=== PATIENT | male | born 1940 | race Caucasian/White ===

== ENCOUNTER 2017-04-26 15:02 | Emergency (ER) | payer OTHER ==
[~2017-04-26] VITALS: Ht 180.3 cm; Wt 80.0 kg
[2017-04-26] MEDS ORDERED: SODIUM CHLORIDE 0.9% 500 ML IV ONE (15:21)
[2017-04-26] MEDS ORDERED: MORPHINE SULFATE 4 MG/ML CPJ (NOT FOR IM USE) IV STA (15:22)
[2017-04-26] MEDS ORDERED: ONDANSETRON HCL 4MG/2ML VIAL IV STA (15:22)
[2017-04-26 16:01] LABS: BASOPHILS % 0.5 % (0.0-2.0); HEMATOCRIT. 42.4 % (42.0-52.0); HEMOGLOBIN. 14.6 g/dL (14.0-18.0); LYMPHOCYTES % 19.6 % (20.0-50.0); MEAN CORPUSCULAR HEMOGLOBIN 31.3 pg (28.0-32.0); MEAN CORPUSCULAR VOLUME 91.3 fL (80.0-94.0); MEAN PLATELET VOLUME 8.7 fl (7.4-10.4); MONOCYTES % 7.5 % (2.0-8.0); NEUTROPHILS % 71.4 % (40.0-76.0); PLATELET 211 x1000/uL (130-400); RED BLOOD CELL COUNT 4.64 mill/uL (4.7-6.1); RED CELL DISTRIBUTION WIDTH 15.1 % (11.6-14.6)
[2017-04-26 16:12] LABS: CARBON DIOXIDE 24 mEq/L (21-32); CHLORIDE 107 mEq/L (98-107); CREATINE KINASE MB FRACTION 2.5 ng/mL (0.5-3.6); TROPONIN I < 0.02 ng/mL (0.00-0.04)
[2017-04-26 16:16] LABS: PROTHROMBIN TIME 10.4 sec
[2017-04-26] MEDS ORDERED: ASPIRIN 81MG TABLET PO ONE (17:30)
[2017-04-26] MEDS ORDERED: MORPHINE SULFATE 4 MG/ML CPJ (NOT FOR IM USE) IV ONE (17:30)
[2017-04-26 20:07] VITALS: BP 181/79
== END 2017-04-26 20:28 | disposition short-term general hospital (02) ==
LOC: ER 15:14
DX: R55 Syncope and collapse (principal); I10 Essential (primary) hypertension; M19.90 Unspecified osteoarthritis, unspecified site; E78.00 Pure hypercholesterolemia, unspecified; G43.909 Migraine, unspecified, not intractable, without status migrainosus
CPT/HCPCS: 36415; 71010; 80053; 82553; 82962; 84484; 85025; 85610; 85730; 93005; 96361; 96374; 96375; 96376; 99285; J2270; J2405; J7040